=== PATIENT | female | born 1980 | race Caucasian/White ===

== ENCOUNTER 2016-11-19 19:46 | Emergency (ER) | payer OTHER ==
[~2016-11-19] VITALS: Ht 165.1 cm; Wt 62.0 kg
[2016-11-19 20:09] VITALS: Ht 165.1 cm; Wt 62.0 kg
[2016-11-19] MEDS ORDERED: CLIN-73 PO (20:24)
[2016-11-19] MEDS ORDERED: IBUP-1542 PO (20:24)
--- NOTE | 2016-11-19 20:34 | ERD ---
ER Documentation Chief Complaint Date/Time DATE: 11/19/16 TIME: 20:30 Chief Complaint wound on back x 3 days, unknown orgin HPI 36-year-old female presents with emergency department for complaints of an insect bite on the right back, noticed it 3 days ago, it became reddened swelling, no bruising. Pustular discharge. Patient is complaining of pain throbbing pains 6/10 scale. Upon touching the area. Patient denies any fever or chills. Patient did not take any medications of symptoms. Patient denies any other wounds in other parts of the body. ROS All systems reviewed and are negative except as per history of present illness. Medications Home Meds Active Scripts Clindamycin Hcl* (Clindamycin Hcl*) 300 Mg Capsule, 300 MG PO TID for 10 Days, CAP Prov:MEGHAN DUMONT NP 11/19/16 Ibuprofen* (Motrin*) 600 Mg Tab, 600 MG PO Q6H Y for PAIN AND OR ELEVATED TEMP, #30 TAB Prov:MEGHAN DUMONT NP 11/19/16 Allergies Allergies: Coded Allergies: No Known Allergy (Unverified , 11/19/16) PMhx/Soc Medical and Surgical Hx: pt denies Medical Hx, pt denies Surgical Hx FmHx Family History: No coronary disease, No diabetes, No other Physical Exam Vitals Vital Signs Date Time Temp Pulse Resp B/P Pulse Ox O2 Delivery O2 Flow Rate FiO2 11/19/16 20:09 98.7 77 18 130/75 98 Physical Exam GENERAL: The patient is well developed and appropriate for usual state of health, in no apparent distress. CHEST: Clear to auscultation bilaterally. There are no rales, wheezes or rhonchi. HEART: Regular rate and rhythm. No murmurs, clicks, rubs or gallops. No S3 or S4. ABDOMEN: Soft, nontender and nondistended. Good bowel sounds. No rebound or guarding. No gross peritonitis. No gross organomegaly or masses. No Hagen sign or McBurney point tenderness. BACK: No midline or flank tenderness. EXTREMITIES: Equal pulses bilaterally. There is no peripheral clubbing, cyanosis or edema. No focal swelling or erythema. Full range of motion. Grossly neurovascularly intact. NEURO: Alert and oriented. Cranial nerves 2-12 intact. Motor strength in all 4 extremities with 5/5 strength. Sensation grossly intact. Normal speech and gait. SKIN: Noted erythema indurated 3 cm maculopapular rash noted in the right back , with some open wound, noted some purulent discharge, no fluctuance noted. There is no apparent ecchymosis or petechia. The skin is warm and dry. HEMATOLOGIC AND LYMPHATIC: There is no evidence of excessive bruising or lymphedema. No gross cervical, axillary, or inguinal lymphadenopathy. Procedures/MDM Medical decision making: Patient's neck is consistent with an infected insect bite, consider early abscess. At this time, no fluctuance, incision and drainage 9 indicated at this time, patient is already draining purulent discharge. No symptoms of any sepsis at this time. Patient appears well and is hemodynamically stable. Low suspicion for allergic reaction. Patient was given Rx for clindamycin, ibuprofen, Zofran do apply warm compresses on affected area , do wound care, follow-up with primary care doctor for reevaluation of symptoms. Patient was advised to return to emergency department for any worsening symptoms. Departure Diagnosis: Primary Impression: Infected insect bite Encounter type: initial encounter Qualified Code: W57.XXXA - Infected insect bite, initial encounter Condition: Stable Patient Instructions: Insect Sting/Bite, Infected MEGHAN DUMONT NP Nov 19, 2016 20:34
== END 2016-11-19 20:34 | disposition home or self-care (01) ==
LOC: E/R 19:46
DX: S30.860A Insect bite (nonvenomous) of lower back and pelvis, initial encounter (principal); L08.9 Local infection of the skin and subcutaneous tissue, unspecified; W57.XXXA Bitten or stung by nonvenomous insect and other nonvenomous arthropods, initial encounter; Y92.9 Unspecified place or not applicable
CPT/HCPCS: 99283

== ENCOUNTER 2017-02-17 17:31 | Emergency (ER) | payer OTHER ==
[~2017-02-17] VITALS: Ht 157.5 cm; Wt 62.0 kg
[~2017-02-17 17:31] MED LIST: CLIN-73 PO; IBUP-1542 PO
[2017-02-17 17:37] VITALS: Ht 157.5 cm; Wt 62.0 kg
[2017-02-17 19:05] LABS: BASOPHIL # 0.1 10^3/ul (0.0-0.1); BASOPHILS % 0.5 % (0.0-2.0); EOSINOPHILS # 0.2 10^3/ul (0.0-0.5); EOSINOPHILS % 2.3 % (0.0-7.0); LYMPHOCYTES # 3.3 10^3/ul (0.8-2.9); LYMPHOCYTES % 36.1 % (15.0-51.0); MEAN CORPUSCULAR HEMOGLOBIN 31.6 pg (29.0-33.0); MEAN CORPUSCULAR HGB CONC 34.1 g/dl (32.0-37.0); MEAN CORPUSCULAR VOLUME 92.6 fl (82.0-101.0); MEAN PLATELET VOLUME 10.8 fl (7.4-10.4); MONOCYTE # 0.6 10^3/ul (0.3-0.9); MONOCYTES % 6.3 % (0.0-11.0); NEUTROPHILS % 54.6 % (39.0-77.0); PLATELET COUNT 234 10^3/UL (140-415); RED BLOOD COUNT 4.75 10^6/ul (4.20-5.40); WHITE BLOOD COUNT 9.1 10^3/ul (4.8-10.8)
--- NOTE | 2017-02-17 19:11 | ERD ---
ER Documentation Chief Complaint Date/Time DATE: 02/17/17 TIME: 19:09 Chief Complaint chest pain for one year HPI 36-year-old female presents here in emergency department for complaints of mid chest pain that started one year ago, patient has been having on and off for the last one year, has been seen by multiple doctors, had echocardiograms done, multiple tests that, was told to be normal. Patient still continues to have the pain on and off sharp pain 4/10 scale intermittent pain not better worse with anything. Patient denies any dyspnea on exertion or dyspnea on lying down. Patient has not taken any prescribed medication for pain only on Aleve and Tylenol. ROS All systems reviewed and are negative except as per history of present illness. Medications Home Meds Active Scripts Clindamycin Hcl* (Clindamycin Hcl*) 300 Mg Capsule, 300 MG PO TID for 10 Days, CAP Prov:MEGHAN DUMONT [employer]ITLE ATT[employer]NEY 11/19/16 Ibuprofen* (Motrin*) 600 Mg Tab, 600 MG PO Q6H Y for PAIN AND OR ELEVATED TEMP, #30 TAB Prov:MEGHAN DUMONT [employer] ATT[employer]NEY 11/19/16 Allergies Allergies: Coded Allergies: Penicillins (Verified Allergy, Severe, rash, 02/17/17) PMhx/Soc Medical and Surgical Hx: pt denies Medical Hx, pt denies Surgical Hx History of Surgery: Yes ( x 2) Anesthesia Reaction: No Hx Neurological Disorder: No Hx Respiratory Disorders: No Hx Cardiac Disorders: No Hx Psychiatric Problems: No Hx Miscellaneous Medical Probl: No Hx Alcohol Use: No Hx Substance Use: No Hx Tobacco Use: Yes Smoking Status: Current some day smoker FmHx Family History: No coronary disease, No diabetes, No other Physical Exam Vitals Vital Signs Date Time Temp Pulse Resp B/P Pulse Ox O2 Delivery O2 Flow Rate FiO2 02/17/17 17:37 99.3 81 18 131/91 99 Physical Exam GENERAL: The patient is well developed and appropriate for usual state of health, in no apparent distress. CHEST: Clear to auscultation bilaterally. There are no rales, wheezes or rhonchi. HEART: Regular rate and rhythm. No murmurs, clicks, rubs or gallops. No S3 or S4. ABDOMEN: Soft, nontender and nondistended. Good bowel sounds. No rebound or guarding. No gross peritonitis. No gross organomegaly or masses. No Hagen sign or McBurney point tenderness. BACK: No midline or flank tenderness. EXTREMITIES: Equal pulses bilaterally. There is no peripheral clubbing, cyanosis or edema. No focal swelling or erythema. Full range of motion. Grossly neurovascularly intact. NEURO: Alert and oriented. Cranial nerves 2-12 intact. Motor strength in all 4 extremities with 5/5 strength. Sensation grossly intact. Normal speech and gait. SKIN: There is no apparent rash or petechia. The skin is warm and dry. HEMATOLOGIC AND LYMPHATIC: There is no evidence of excessive bruising or lymphedema. No gross cervical, axillary, or inguinal lymphadenopathy. Result Diagram: 02/17/17185102/17/[id number] Results 24 hrs Laboratory Tests Test 02/17/17 18:52 White Blood Count 9.110^3/ul Red Blood Count 4.7510^6/ul Hemoglobin 15.0g/dl Hematocrit 44.0% Mean Corpuscular Volume 92.6fl Mean Corpuscular Hemoglobin 31.6pg Mean Corpuscular Hemoglobin Concent 34.1g/dl Red Cell Distribution Width 13.0% Platelet Count 17399^3/UL Mean Platelet Volume 10.8fl Neutrophils % 54.6% Lymphocytes % 36.1% Monocytes % 6.3% Eosinophils % 2.3% Basophils % 0.5% Nucleated Red Blood Cells % 0.0/100WBC Neutrophils # 5.010^3/ul Lymphocytes # 3.310^3/ul Monocytes # 0.610^3/ul Eosinophils # 0.210^3/ul Basophils # 0.110^3/ul Nucleated Red Blood Cells # 0.010^3/ul Sodium Level 137mmol/L Potassium Level 3.9mmol/L Chloride Level 103mmol/L Carbon Dioxide Level 27mmol/L Anion Gap 11 Blood Urea Nitrogen 13mg/dl Creatinine 0.62mg/dl Glucose Level 80mg/dl Calcium Level 9.3mg/dl Troponin I < 0.012ng/ml EKG was done, read by me and is normal sinus rhythm at a rate of 77, normal axis , there is no ST changes or changes in the EKG that indicates any cardiac emergencies at this time. Patient's EKG was also reviewed by Dr. Aguilar. Impression: no acute findings on EKG PROCEDURE: XR Chest PA CLINICAL INDICATION: Chest pain TECHNIQUE: An PA radiograph of the chest was submitted. COMPARISON: None. FINDINGS: Cardiovascular: The cardiovascular silhouette appears unremarkable. Lung Vo: The lung vo appear clear with no nodule, alveolar infiltrate, or interstitial prominence evident. Pleural Spaces: There is no pneumothorax or pleural fluid accumulation evident. Osseous Structures: The osseous structures appear intact. Soft Tissues: The soft tissues appear unremarkable. IMPRESSION: Unremarkable PA chest. Physician Pavel Date Time Electronically viewed and signed by Physician Pavel on 02/17/2017 19:53 RH/ CC: MEGHAN DUMONT [employer] Procedures/MDM Medical Decision Making:Patient symptoms of chest pain nonspecific at this time. Can be anxiety related. There is low suspicion for cardiopulmonary emergencies at this time. Patient has low risk factors. EKG is normal, there is no changes in the EKG that indicates cardiac emergencies. Chest X-ray does not show cardiopulmonary emergencies at this time. There is low suspicion for aortic aneurysm, myocardial infarction, pneumothorax, pleural effusion, pulmonary embolism, or any other cardiopulmonary emergencies at this time. Cardiac markers are normal. prescription was given for tramadol, ibuprofen, is adviseto follow with primary care doctor, possibly a meat specialist for possible Holter monitoring stress test, and further workup. Patient is advised to return to emergency department for any worsening symptoms. Dispostion: Home. Stable Disclaimer: Inadvertent spelling and grammatical errors are likely due to EHR/ dictation software use and do not reflect on the overall quality of patient care. Also, please note that the electronic time recorded on this note does not necessarily reflect the actual time of the patient encounter. Departure Diagnosis: Primary Impression: Atypical chest pain Condition: Stable Patient Instructions: Chest Pain, Uncertain Cause Additional Instructions: prescription was given for tramadol, ibuprofen, is adviseto follow with primary care doctor, possibly a meat specialist for possible Holter monitoring stress test, and further workup. Patient is advised to return to emergency department for any worsening symptoms. MEGHAN DUMONT NP Feb 17, 2017 19:11
[2017-02-17 19:21] LABS: ANION GAP 11 (8-16); BLOOD UREA NITROGEN 13 mg/dl (7-20); CALCIUM 9.3 mg/dl (8.4-10.2); CARBON DIOXIDE 27 mmol/L (21-31); CHLORIDE 103 mmol/L (97-110); CREATININE 0.62 mg/dl (0.44-1.00); GLUCOSE 80 mg/dl (70-220); POTASSIUM 3.9 mmol/L (3.5-5.1); SODIUM 137 mmol/L (135-144)
[2017-02-17 19:34] LABS: TROPONIN-I < 0.012 ng/ml (0.00-0.12)
--- NOTE | 2017-02-17 19:54 | RADRPT ---
PROCEDURE: XR Chest PA CLINICAL INDICATION: Chest pain TECHNIQUE: An PA radiograph of the chest was submitted. COMPARISON: None. FINDINGS: Cardiovascular: The cardiovascular silhouette appears unremarkable. Lung Galindo: The lung galindo appear clear with no nodule, alveolar infiltrate, or interstitial promi nence evident. Pleural Spaces: There is no pneumothorax or pleural fluid accumulation evident. Osseous Structures: The osseous structures appear intact. Soft Tissues: The soft tissues appear unremarkable. IMPRESSION: Unremarkable PA chest. Physician Pavel Date Time Electronically viewed and signed by Jarvis Salas Physician on 02/17/2017 19:53 /
[2017-02-17] MEDS ORDERED: IBUP-1542 PO (20:19)
[2017-02-17] MEDS ORDERED: TRAM50TA2 PO (20:19)
[2017-02-17 20:31] VITALS: BP 147/94; PULSE 52; RESP 18; TEMP 97.7
== END 2017-02-17 20:33 | disposition home or self-care (01) ==
LOC: FTE 17:31
DX: R07.89 Other chest pain (principal); F17.210 Nicotine dependence, cigarettes, uncomplicated
CPT/HCPCS: 71010; 80048; 84484; 85025; 93005; Z7502

== ENCOUNTER 2017-04-30 18:02 | Emergency (ER) | payer OTHER ==
[~2017-04-30] VITALS: Ht 152.4 cm; Wt 70.0 kg
[~2017-04-30 18:02] MED LIST changes: +TRAM50TA2 PO
[2017-04-30 18:05] VITALS: Ht 152.4 cm; Wt 70.0 kg
[2017-04-30] MEDS ORDERED: AZIT250T94 PO (19:54)
[2017-04-30] MEDS ORDERED: NAPR-260 PO (19:54)
--- NOTE | 2017-04-30 20:45 | ERD ---
ER Documentation Chief Complaint Chief Complaint ST X 2 WEEKS HPI 37-year-old female complaining of sore throat 2 weeks. Patient states she has taken all the [id number] medication with no alleviation of symptoms. Patient states the pain is worse with swallowing. Denies fever. Has a mild dry cough. Denies nasal congestion. Denies sick contacts. Allergies to medication: Penicillin, prednisone. Surgical history: . Social history smoked but stopped 6 months ago ROS All systems reviewed and are negative except as per history of present illness. Medications Home Meds Active Scripts Azithromycin* (Zithromax*) 250 Mg Tablet, 250 MG PO .ZPACK DIRECTED, #6 TAB TAKE 500 MG (2 TABS) THE FIRST DAY THEN 250 MG (1 TAB) DAYS 2-5 Prov:ROLAND ARCHULETA PA-C 04/30/17 Naproxen* (Naprosyn*) 500 Mg Tablet, 500 MG PO BID Y for PAIN AND/OR INFLAMMATION, #30 TAB Prov:ROLAND ARCHULETA PA-C 04/30/17 Ibuprofen* (Motrin*) 600 Mg Tab, 600 MG PO Q6H Y for PAIN AND OR ELEVATED TEMP, #30 TAB Prov:MEGHAN DUMONT NP 02/17/17 Tramadol HCl (Tramadol HCl) 50 Mg Tablet, 50 MG PO Q6 Y for SEVERE PAIN LEVEL 7- 10, #20 TAB Prov:MEGHAN DUMONT NP 02/17/17 Clindamycin Hcl* (Clindamycin Hcl*) 300 Mg Capsule, 300 MG PO TID for 10 Days, CAP Prov:MEGHAN DUMONT NP 11/19/16 Ibuprofen* (Motrin*) 600 Mg Tab, 600 MG PO Q6H Y for PAIN AND OR ELEVATED TEMP, #30 TAB Prov:MEGHAN DUMONT NP 11/19/16 Allergies Allergies: Coded Allergies: Penicillins (Verified Allergy, Severe, rash, 02/17/17) PMhx/Soc Medical and Surgical Hx: pt denies Medical Hx History of Surgery: Yes () Anesthesia Reaction: No Hx Neurological Disorder: No Hx Respiratory Disorders: No Hx Cardiac Disorders: No Hx Psychiatric Problems: No Hx Miscellaneous Medical Probl: No Hx Alcohol Use: No Hx Substance Use: No Hx Tobacco Use: Yes Smoking Status: Former smoker Physical Exam Vitals Vital Signs Date Time Temp Pulse Resp B/P Pulse Ox O2 Delivery O2 Flow Rate FiO2 04/30/17 18:05 97.6 80 18 140/78 99 Physical Exam GENERAL: The patient is well-appearing, well-nourished, in no acute distress HEENT: Atraumatic. Conjunctivae are pink. Pupils equal, round, and reactive to light. There is no scleral icterus. Tympanic membranes clear bilaterally. Oropharynx clear. No nystagmus or photophobia. NECK: C-spine is soft and supple. There is no meningismus. There is no cervical lymphadenopathy. CHEST: Clear to auscultation bilaterally. There are no rales, wheezes or rhonchi. HEART: Regular rate and rhythm. No murmurs, clicks, rubs or gallops. No S3 or S4. Procedures/MDM MDM: 37-year-old female complaining of sore throat 2 weeks. I have low suspicion for peritonsillar or retropharyngeal abscess. I have low suspicion for neck abscess. I have low suspicion for pneumonia. Patient's exam is non- concerning. Patient will be placed on antibiotics given her she has had symptoms for the last 2 weeks. He is told symptoms change or worsen to return the ER immediately. All questions answered at discharge. Departure Diagnosis: Primary Impression: Sore throat Condition: Stable Patient Instructions: Self-Care for Sore Throats Referrals: [facility] Additional Instructions: FOLLOW UP WITH YOUR PRIMARY CARE PHYSICIAN TOMORROW.Return to this facility if you are not improving as expected. ROLAND ARCHULETA PA-C Apr 30, 2017 20:45
== END 2017-04-30 20:18 | disposition home or self-care (01) ==
LOC: FTE 18:02
DX: J02.9 Acute pharyngitis, unspecified (principal); Z87.891 Personal history of nicotine dependence
CPT/HCPCS: 99283